=== PATIENT | female | born 1965 | race African-American/Black ===

== ENCOUNTER 2016-09-11 10:36 | Emergency (ER) | payer OTHER ==
[~2016-09-11] VITALS: Ht 154.9 cm; Wt 65.0 kg
[~2016-09-11 10:36] MED LIST: METO25CR PO; MOBI15TA PO
[2016-09-11 10:40] VITALS: BP 196/119; PULSE 80; RESP 16; TEMP 98.1; O2SAT 95
[2016-09-11 11:20] VITALS: BP 167/102; PULSE 76; RESP 18; O2SAT 99
[2016-09-11] MEDS ORDERED: METO25TA6 PO (11:23)
[2016-09-11] MEDS ORDERED: SODIUM CHLOR 0.9% 1000 ML INJ 1,000 ML IV SCH (11:25)
[2016-09-11] MEDS ORDERED: MORPHINE SULFATE 4 MG/ML INJ IV PUSH ONE (11:30)
[2016-09-11] MEDS ORDERED: ONDANSETRON HCL 4 MG/2 ML VIAL IVP ONE (11:30)
[2016-09-11] MEDS ORDERED: SODIUM CHLORIDE 0.9% FLUSH 5 ML FLUSH IVF PRN (11:30)
--- NOTE | 2016-09-11 11:34 | PD ---
HPI Chief Complaint: Abdominal Pain Time Seen by Provider: 12:00 Travel History International Travel<30 days: No Contact w/Intl Traveler<30days: No Traveled to known affect area: No History of Present Illness HPI 50-year-old Afro-[place]i female coming in with sudden onset abdominal pain with nausea and vomiting starting approximately 7:00 this morning. Patient states the pain comes in waves and at worst is 8/10. She states the pain is mostly in the central epigastric region radiating to her back. Patient denies EtOH use, patient states she had triple Ailyn last evening. Patient has not had any abdominal surgeries other than a tubal ligation 20 years ago. Patient denies urinary symptoms. Patient denies cough, shortness of breath or chest pain. Patient has no known drug allergies. PFSH Past Medical History Anxiety: No Depression: No Heart Rhythm Problems: Yes (Tachycardiac at times) Cancer: No Cardiac Catheterization: No Cardiovascular Problems: Yes High Cholesterol: No Chest Pain: No Congestive Heart Failure: No Diabetes: No Diminished Hearing: No Endocrine: No Gastrointestinal Disorders: No Genitourinary: No Hepatitis: No Hiatal Hernia: No Hypertension: Yes Immune Disorder: No Implanted Vascular Access Dvce: No Musculoskeletal: No Neurologic: No Psychiatric: No Reproductive: Yes (Hysterectomy 07/19/14) Respiratory: No Myocardial Infarction: No Thyroid Disease: No Tetanus Vaccination: > 5 Years Influenza Vaccination: Yes ?: Not Menopausal: Yes : 5 Para: 4 Tubal Ligation: Yes Past Surgical History Abdominal Surgery: No AICD: No Body Medical Devices: NONE Cardiac Surgery: No Coronary Artery Bypass Graft: No Ear Surgery: No Endocrine Surgery: No Eye Surgery: No Genitourinary Surgery: No Gynecologic Surgery: Yes (VU TUBAL LIGATION 1994; UTERINE ABLATION 2008) Hysterectomy: Yes (PARTIAL) Joint Replacement: No Neurologic Surgery: No Oral Surgery: No Pacemaker: No Thoracic Surgery: No Other Surgery: Yes (07/19/14 Hysterectomy) Family History Family Myocardial Infarction: Yes (FATHER HAS HEART PROBLEMS) Social History Alcohol Use: No Tobacco Use: No Substance Use: No Allergies-Medications (Allergen,Severity, Reaction): Coded Allergies: No Known Allergies (Verified , 09/11/16) Reported Meds & Prescriptions Reported Meds & Active Scripts Active Reported Metoprolol Succinate ER 24 HR (Metoprolol Succinate) 25 Mg Tab 25 Mg PO DAILY Review of Systems Except as stated in HPI: all other systems reviewed are Neg General / Constitutional: No: Fever Eyes: No: Visual changes HENT: No: Headaches Cardiovascular: No: Chest Pain or Discomfort Respiratory: No: Shortness of Breath Gastrointestinal: Positive: Nausea, Vomiting, Abdominal Pain, Loss of Appetite , No: Diarrhea, Constipation, Indigestion, Dysphagia Genitourinary: No: Urgency, Frequency, Dysuria Musculoskeletal: No: Pain Skin: No Rash Neurologic: No: Weakness Psychiatric: No: Depression Endocrine: No: Polydipsia Hematologic/Lymphatic: No: Easy Bruising Physical Exam Narrative GENERAL: Patient appears in moderate distress. SKIN: Warm and dry. Normal color, normal turgor. HEAD: Atraumatic. Normocephalic. EYES: Pupils equal and round. No scleral icterus. No injection or drainage. ENT: No nasal bleeding or discharge. Mucous membranes pink and moist. NECK: Trachea midline. Supple. CARDIOVASCULAR: Regular rate and rhythm. RESPIRATORY: No accessory muscle use. Clear to auscultation. Breath sounds equal bilaterally. GASTROINTESTINAL: Abdomen soft, generalized nonspecific tenderness mainly in the upper epigastric region with questionable Zimmer sign on the right, nondistended. No point tenderness or rebound appreciated. Bowel sounds are normal. Hepatic and splenic margins not palpable. No CVA tenderness. MUSCULOSKELETAL: Extremities without clubbing, cyanosis, or edema. No obvious deformities. NEUROLOGICAL: Awake and alert. No obvious cranial nerve deficits. Motor grossly within normal limits. Five out of 5 muscle strength in the arms and legs. Normal speech. PSYCHIATRIC: Appropriate mood and affect; insight and judgment normal. Data Data Last Documented VS Vital Signs Date Time Temp Pulse Resp B/P Pulse Ox O2 Delivery O2 Flow Rate FiO2 09/11/16 11:20 76 18 167/102 99 Room Air 09/11/16 10:40 98.1 Orders Complete Blood Count With Diff (09/11/16 11:25) Comprehensive Metabolic Panel (09/11/16 11:25) Lipase (09/11/16 11:25) Lactic Acid (09/11/16 11:25) Urinalysis - C+S If Indicated (09/11/16 11:25) Ct Abd/Pel W Iv Contrast(Rout) (09/11/16 11:25) Iv Access Insert/Monitor (09/11/16 11:25) Ecg Monitoring (09/11/16 11:25) Oximetry (09/11/16 11:25) NPO (09/11/16 11:25) Morphine Inj (Morphine Inj) (09/11/16 11:30) Ondansetron Inj (Zofran Inj) (09/11/16 11:30) Sodium Chlor 0.9% 1000 Ml Inj (Ns 1000 M (09/11/16 11:25) Sodium Chloride 0.9% Flush (Ns Flush) (09/11/16 11:30) Electrocardiogram (09/11/16 11:25) Oral Contrast - Adult (09/11/16 11:31) Diatrizoate Liq ( Gastroview Liq) (09/11/16 12:03) Urine Culture (09/11/16 11:50) Iohexol 350 Inj (Omnipaque 350 Inj) (09/11/16 14:08) Labs Laboratory Tests Test 09/11/16 11:50 White Blood Count 10.3 TH/MM3 Red Blood Count 4.64 MIL/MM3 Hemoglobin 12.6 GM/DL Hematocrit 37.3 % Mean Corpuscular Volume 80.4 FL Mean Corpuscular Hemoglobin 27.1 PG Mean Corpuscular Hemoglobin 33.7 % Concent Red Cell Distribution Width 15.7 % Platelet Count 310 TH/MM3 Mean Platelet Volume 7.9 FL Neutrophils (%) (Auto) 84.1 % Lymphocytes (%) (Auto) 10.8 % Monocytes (%) (Auto) 3.9 % Eosinophils (%) (Auto) 0.6 % Basophils (%) (Auto) 0.6 % Neutrophils # (Auto) 8.7 TH/MM3 Lymphocytes # (Auto) 1.1 TH/MM3 Monocytes # (Auto) 0.4 TH/MM3 Eosinophils # (Auto) 0.1 TH/MM3 Basophils # (Auto) 0.1 TH/MM3 CBC Comment DIFF FINAL Differential Comment Urine Color YELLOW Urine Turbidity CLEAR Urine pH 8.0 Urine Specific [place] 1.019 Urine Protein NEG mg/dL Urine Glucose (UA) NEG mg/dL Urine Ketones NEG mg/dL Urine Occult Blood NEG Urine Nitrite NEG Urine Bilirubin NEG Urine Urobilinogen LESS THAN 2.0 MG/DL Urine Leukocyte Esterase NEG Urine RBC LESS THAN 1 /hpf Urine WBC 12 /hpf Urine Squamous Epithelial 1 /hpf Cells Urine Bacteria RARE /hpf Urine Mucus FEW /lpf Microscopic Urinalysis Comment CULTURE INDICATED Sodium Level 140 MEQ/L Potassium Level 3.9 MEQ/L Chloride Level 106 MEQ/L Carbon Dioxide Level 26.3 MEQ/L Anion Gap 8 MEQ/L Blood Urea Nitrogen 13 MG/DL Creatinine 0.59 MG/DL Estimat Glomerular Filtration 131 ML/MIN Rate Random Glucose 90 MG/DL Lactic Acid Level 0.9 mmol/L Calcium Level 8.1 MG/DL Total Bilirubin 0.3 MG/DL Aspartate Amino Transf 13 U/L (AST/SGOT) Alanine Aminotransferase 17 U/L (ALT/SGPT) Alkaline Phosphatase 73 U/L Total Protein 7.4 GM/DL Albumin 3.5 GM/DL Lipase 100 U/L MDM Medical Decision Making Medical Screen Exam Complete: Yes Emergency Medical Condition: Yes Differential Diagnosis Gastroenteritis. Gallbladder disease. Urinary tract infection. Pancreatitis. Colitis. Narrative Course Patient is medically stable at time of exam. Labs ordered including CBC, CMP, urinalysis, lipase, and lactic acid. EKG is performed showing normal sinus rhythm. This is reviewed by Dr. Mckeon. IV access is obtained patient is given morphine 4 mg IV as well as 4 mg Zofran IV. Abdominal CT with IV and oral contrast was ordered. Patient is made nothing by mouth and given 1000 mL's normal saline IV. CBC is unremarkable except for slight right shift but no leukocytosis. Chemistries are unremarkable. Lactic acid is 0.9. Urinalysis has 12 white blood cells per high-powered field, 1 epithelial cell, rare bacteria, and urine is cultured. CT is negative per radiologist. Patient will be treated outpatient basis with ranitidine 150 mg twice a day 10 days. Patient is also given Zofran 4 mg every 6 hours when necessary nausea. Patient is to rest and push clear fluids for the next several days. Patient should follow with her primary care physician as needed. Urine culture is pending but antibiotic is not felt necessary at this time. Patient can return to the department if symptoms worsen as needed. Diagnosis Primary Impression: Gastritis Qualified Code: K29.00 - Acute gastritis without hemorrhage, unspecified gastritis type Additional Impression: Nausea & vomiting Qualified Code: R11.2 - Non-intractable vomiting with nausea, unspecified vomiting type Patient Instructions: Acute Nausea and Vomiting (ED), Gastritis (ED), General Instructions Additional Instructions: CBC is unremarkable except for slight right shift but no leukocytosis. Chemistries are unremarkable. Lactic acid is 0.9. Urinalysis has 12 white blood cells per high-powered field, 1 epithelial cell, rare bacteria, and urine is cultured. CT is negative per radiologist. Patient will be treated outpatient basis with ranitidine 150 mg twice a day 10 days. Patient is also given Zofran 4 mg every 6 hours when necessary nausea. Patient is to rest and push clear fluids for the next several days. Patient should follow with her primary care physician as needed. Urine culture is pending but antibiotic is not felt necessary at this time. Patient can return to the department if symptoms worsen as needed. Med/Other Pt SpecificInfo: Prescription(s) given Disposition: 01 DISCHARGE HOME Condition: Stable Praveen Benavidez Sep 11, 2016 11:34
[2016-09-11 11:59] LABS: AUTOMATED NEUTROPHIL # 8.7 TH/MM3 (1.8-7.7); BASOPHIL # 0.1 TH/MM3 (0-0.2); BASOPHIL % 0.6 % (0.0-2.0); EOSINOPHIL # 0.1 TH/MM3 (0-0.4); EOSINOPHIL % 0.6 % (0.0-4.0); HEMATOCRIT 37.3 % (35.0-46.0); HEMO FLAGS DIFF FINAL; LYMPH % 10.8 % (9.0-44.0); LYMPHOCYTE # 1.1 TH/MM3 (1.0-4.8); MEAN CELL VOLUME 80.4 FL (80.0-100.0); MEAN CORPUSCULAR HEMOGLOBIN 27.1 PG (27.0-34.0); MEAN CORPUSCULAR HGB CONC 33.7 % (32.0-36.0); MONO % 3.9 % (0.0-8.0); NEUT % 84.1 % (16.0-70.0); PLATELET COUNT 310 TH/MM3 (150-450); RED BLOOD COUNT 4.64 MIL/MM3 (4.00-5.30); RED CELL DISTRIBUTION WIDTH 15.7 % (11.6-17.2); WHITE BLOOD COUNT 10.3 TH/MM3 (4.0-11.0)
[2016-09-11] MEDS ORDERED: DIATRIZOATE MEGLUM/DIATRIZOATE SOD 9 ML CUP ONE (12:03)
[2016-09-11 12:07] LABS: BACTERIA, URINE RARE /hpf; BLOOD, URINE NEG (NEG); COMMENT (UR) CULTURE INDICATED; CULTURE IF INDICATED CULTURE INDICATED; GLUCOSE,URINE NEG (NEG); KETONE, URINE NEG (NEG); MUCUS URINE FEW /lpf (OCC); NITRITE,URINE NEG (NEG); SQUAMOUS EPITHELIAL CELL URINE 1 /hpf (0-5); URINE COLOR YELLOW (YELLW/STRAW)
[2016-09-11 12:21] LABS: ALT (GPT) 17 U/L (10-53); ANION GAP 8 MEQ/L (5-15); AST (GOT) 13 U/L (15-37); BICARBONATE 26.3 MEQ/L (21.0-32.0); BLOOD UREA NITROGEN 13 MG/DL (7-18); CHLORIDE 106 MEQ/L (98-107); GLOMERULAR FILTRATION RATE 131 ML/MIN (>89); POTASSIUM 3.9 MEQ/L (3.5-5.1); SODIUM (NA) 140 MEQ/L (136-145)
[2016-09-11 12:24] LABS: ALKALINE PHOSPHATASE 73 U/L (45-117); TOTAL BILIRUBIN ADULT 0.3 MG/DL (0.2-1.0)
--- NOTE | 2016-09-11 14:02 | RADRPT ---
EXAM DATE/TIME: 09/11/2016 13:29 [facility] COMPARISON: No previous studies available for comparison. INDICATIONS : Abdomen pain. IV CONTRAST: 90 cc Omnipaque 350 (iohexol) IV ORAL CONTRAST: No oral contrast ingested. RADIATION DOSE: 9.96 CTDIvol (mGy) MEDICAL HISTORY : None SURGICAL HISTORY : Hysterectomy. ENCOUNTER: Initial ACUITY: 1 day PAIN SCALE: 5/10 LOCATION: Bilateral abdomen. TECHNIQUE: Volumetric scanning of the abdomen and pelvis was performed. Using automated exposure control and ad justment of the mA and/or kV according to patient size, radiation dose was kept as low as reasonably achievable to obtain optimal diagnostic quality images. FINDINGS: Lung bases are clear. Liver is free of focal defects. Spleen, pancreas, adrenal glands and kidneys are unremarkable. There is symmetrical renal function. Region of the cecum and terminal ileum are unremarkable. Bladder is moderately distended. Paracervical tissues are prominent. There is no free fluid. There is no adenopathy. There is no ev idence for a hernia. Review of bone windows reveals only mild degenerative changes in the lower lumbar spine. CONCLUSION: I do not see an etiology for the patient's abdominal pain. Demetrius Todd MD FACR on September 11, 2016 at 13:57 Board Certified Radiologist. This report was verified electronically.
[2016-09-11] MEDS ORDERED: IOHEXOL 350 MG/ML 10 ML VIAL (for RAD DIAG) IV ONE (14:08)
--- NOTE | 2016-09-11 14:20 | PD ---
Data Data Last Documented VS Vital Signs Date Time Temp Pulse Resp B/P Pulse Ox O2 Delivery O2 Flow Rate FiO2 09/11/16 11:20 76 18 167/102 99 Room Air 09/11/16 10:40 98.1 Orders Complete Blood Count With Diff (09/11/16 11:25) Comprehensive Metabolic Panel (09/11/16 11:25) Lipase (09/11/16 11:25) Lactic Acid (09/11/16 11:25) Urinalysis - C+S If Indicated (09/11/16 11:25) Ct Abd/Pel W Iv Contrast(Rout) (09/11/16 11:25) Iv Access Insert/Monitor (09/11/16 11:25) Ecg Monitoring (09/11/16 11:25) Oximetry (09/11/16 11:25) NPO (09/11/16 11:25) Morphine Inj (Morphine Inj) (09/11/16 11:30) Ondansetron Inj (Zofran Inj) (09/11/16 11:30) Sodium Chlor 0.9% 1000 Ml Inj (Ns 1000 M (09/11/16 11:25) Sodium Chloride 0.9% Flush (Ns Flush) (09/11/16 11:30) Electrocardiogram (09/11/16 11:25) Oral Contrast - Adult (09/11/16 11:31) Diatrizoate Liq ( Gastroview Liq) (09/11/16 12:03) Urine Culture (09/11/16 11:50) Iohexol 350 Inj (Omnipaque 350 Inj) (09/11/16 14:08) Labs Laboratory Tests Test 09/11/16 11:50 White Blood Count 10.3 TH/MM3 Red Blood Count 4.64 MIL/MM3 Hemoglobin 12.6 GM/DL Hematocrit 37.3 % Mean Corpuscular Volume 80.4 FL Mean Corpuscular Hemoglobin 27.1 PG Mean Corpuscular Hemoglobin 33.7 % Concent Red Cell Distribution Width 15.7 % Platelet Count 310 TH/MM3 Mean Platelet Volume 7.9 FL Neutrophils (%) (Auto) 84.1 % Lymphocytes (%) (Auto) 10.8 % Monocytes (%) (Auto) 3.9 % Eosinophils (%) (Auto) 0.6 % Basophils (%) (Auto) 0.6 % Neutrophils # (Auto) 8.7 TH/MM3 Lymphocytes # (Auto) 1.1 TH/MM3 Monocytes # (Auto) 0.4 TH/MM3 Eosinophils # (Auto) 0.1 TH/MM3 Basophils # (Auto) 0.1 TH/MM3 CBC Comment DIFF FINAL Differential Comment Urine Color YELLOW Urine Turbidity CLEAR Urine pH 8.0 Urine Specific [place] 1.019 Urine Protein NEG mg/dL Urine Glucose (UA) NEG mg/dL Urine Ketones NEG mg/dL Urine Occult Blood NEG Urine Nitrite NEG Urine Bilirubin NEG Urine Urobilinogen LESS THAN 2.0 MG/DL Urine Leukocyte Esterase NEG Urine RBC LESS THAN 1 /hpf Urine WBC 12 /hpf Urine Squamous Epithelial 1 /hpf Cells Urine Bacteria RARE /hpf Urine Mucus FEW /lpf Microscopic Urinalysis Comment CULTURE INDICATED Sodium Level 140 MEQ/L Potassium Level 3.9 MEQ/L Chloride Level 106 MEQ/L Carbon Dioxide Level 26.3 MEQ/L Anion Gap 8 MEQ/L Blood Urea Nitrogen 13 MG/DL Creatinine 0.59 MG/DL Estimat Glomerular Filtration 131 ML/MIN Rate Random Glucose 90 MG/DL Lactic Acid Level 0.9 mmol/L Calcium Level 8.1 MG/DL Total Bilirubin 0.3 MG/DL Aspartate Amino Transf 13 U/L (AST/SGOT) Alanine Aminotransferase 17 U/L (ALT/SGPT) Alkaline Phosphatase 73 U/L Total Protein 7.4 GM/DL Albumin 3.5 GM/DL Lipase 100 U/L [facility] Supervised Visit with DEBORA: Yes Narrative Course The history, exam, and medical decision-making in the associated mid-level provider note were completed with my assistance. I reviewed and agree with the findings presented. I attest that I had a [id number] encounter with the patient on the same day, and personally performed and documented my assessment and findings in the medical record. *My assessment and Findings: 50-year-old woman, diffuse abdominal pain, worse in the epigastrium times this morning. Mild diffuse tenderness. No significant right upper quadrant tenderness. Labs and imaging are unremarkable. Recommend supportive treatment. Naresh Mckeon MD Sep 11, 2016 14:20
[2016-09-11] MEDS ORDERED: ZOFR4TAB PO (14:24)
[2016-09-11] MEDS ORDERED: RANI150T PO (14:24)
[2016-09-11 14:30] VITALS: BP 148/87; PULSE 82; RESP 16; O2SAT 98
--- NOTE | 2016-09-11 19:52 | EKG ---
Date Performed: 09/11/2016 Time Performed: 11:52:33 PTAGE: 50 years EKG: Sinus rhythm NORMAL ECG PREVIOUS TRACING : 01/02/2014 00.22 Since previous tracing, no significant change noted DOCTOR: Javier Monteiro Interpretating Date/Time 09/11/2016 19:52:02
== END 2016-09-11 14:50 | disposition home or self-care (01) ==
LOC: NEPC 10:36
DX: K29.00 Acute gastritis without bleeding (principal); R10.9 Unspecified abdominal pain; I10 Essential (primary) hypertension
CPT/HCPCS: 74177; 80053; 81001; 83605; 83690; 85025; 87086; 93005; 96361; 96374; 96375; 99284; J2270; J2405; J7030; Q9963; Q9967